=== PATIENT | male | born 1995 | race Hispanic/Latino ===

== ENCOUNTER 2019-02-03 23:58 | Emergency (ER) | payer MEDICAID, OTHER, SELFPAY ==
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
== END 2019-02-04 01:57 | disposition home or self-care (01) ==
LOC: ERS 23:58
DX: M54.2 Cervicalgia (principal); V89.2XXA Person injured in unspecified motor-vehicle accident, traffic, initial encounter
CPT/HCPCS: 72125